=== PATIENT | male | born 2000 | race Caucasian/White ===

== ENCOUNTER 2022-03-26 20:20 | Emergency (ER) | payer OTHER ==
[2022-03-26 20:29] VITALS: TEMP 97.8
[2022-03-26] MEDS ORDERED: TOPICAL SKIN ADHESIVE 1 EACH AMP TOPICAL ONE (21:55)
[2022-03-26 22:04] VITALS: BP 110/60; PULSE 60; RESP 16
--- NOTE | 2022-03-26 22:04 | ED ---
Wound/Laceration HPI - General Chief Complaint: Wound/Laceration Stated Complaint: R hand finger injury Time Seen by Provider: 03/26/22 21:37 Source: patient Mode of arrival: ambulatory Limitations: no limitations - History of Present Illness Initial Comments: This patient is 21-year-old man who presents with finger laceration. 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 He states his finger was cut on the edge of a piece of metal in the marketing pr intern. Patient denies loss of sensation or function. Patient did have complete immunization series. -: minutes(s) Place: home Patient Tetanus UTD: Yes Context: accidental Associated Symptoms: none - Related Data Home Medications Medication Instructions Recorded Confirmed No Known Home Medications 01/17/16 01/17/16 Allergies Allergy/AdvReac Type Severity Reaction Status Date / Time No Known Allergies Allergy Verified 03/26/22 20:28 Review of Systems ROS Statement: Those systems with pertinent positive or pertinent negative responses have been documented in the HPI. ROS Other: All systems not noted in ROS Statement are negative. Constitutional: Denies: fever Skin: Reports: as per HPI (Laceration) Neurological: Denies: numbness Hematological/Lymphatic: Denies: easy bleeding Past Medical History Past Medical History: No Reported History History of Any Multi-Drug Resistant Organisms: None Reported Past Surgical History: No Surgical Hx Reported Past Psychological History: No Psychological Hx Reported Smoking Status: Never smoker Past Alcohol Use History: None Reported Past Drug Use History: None Reported General Exam Limitations: no limitations General appearance: alert, in no apparent distress Skin exam: Present: warm, dry, normal color, other (There is an approximately 1 cm total length flap laceration to the pad of the right third digit. The flap is well approximated.) Course Vital Signs 03/26/22 03/26/22 20:26 22:02 Temperature 97.8 F Pulse Rate 71 60 Respiratory 18 16 Rate Blood Pressure 103/64 110/60 O2 Sat by Pulse 97 99 Oximetry Procedures - Laceration Laceration #1 Consent Obtained: verbal consent Indication: laceration Description: flap Type of Sutures: other (Skin adhesive) Size of Sutures: other (Skin adhesive) Technique: other (Skin adhesive) Disposition Clinical Impression: Laceration Disposition: HOME SELF-CARE Condition: Good Instructions (If sedation given, give patient instructions): Laceration (ED) Is patient prescribed a controlled substance at d/c from ED?: No Referrals: Vanesa Sidhu MD [Primary Care Provider] - 1-2 days
== END 2022-03-26 22:24 | disposition home or self-care (01) ==
LOC: EC 20:20
DX: T14.90XA Injury, unspecified, initial encounter (principal); W26.8XXA Contact with other sharp object(s), not elsewhere classified, initial encounter
CPT/HCPCS: 12001; 99283

== ENCOUNTER → 2023-05-12 | Outpatient (CLI) | payer OTHER ==
--- NOTE | 2023-05-12 14:46 | XR ---
EXAMINATION TYPE: XR foot complete 3 views LT DATE OF EXAM: 05/12/2023 Comparison: None Clinical History: 22-year-old male WORK COMP CLAIM S97.82XA, LEFT FOOT CRUSHING INJURY Findings: Incidental bone island within the medial talar head. No acute fracture, subluxation, dislocation is s een. Small plantar heel spur. Impression: No acute osseous abnormality seen. Small plantar heel spur.
== END | disposition home or self-care (01) ==
LOC: RADXRMAIN 14:13
PROVIDERS: ATTEND Emergency Medicine
DX: S97.82XA Crushing injury of left foot, initial encounter (principal)